=== PATIENT | male | born 1945 | race African-American/Black ===

== ENCOUNTER 2020-02-10 09:01 | Emergency (ER) | payer OTHER ==
[~2020-02-10] VITALS: Ht 180.3 cm; Wt 99.8 kg
[2020-02-10 09:16] VITALS: TEMP 98.7
[2020-02-10 12:43] LABS: PLATELET COUNT 214 K/uL (142-355)
[2020-02-10 14:14] LABS: PARTIAL THROMBOPLASTIN TIME 21.6 SECONDS (24.5-33.6)
[2020-02-10 19:00] VITALS: BP 195/97
== END 2020-02-10 19:49 | disposition short-term general hospital (02) ==
LOC: ED 09:01
PROVIDERS: Hospitalist
PROC: 0PS5XZZ Reposition Right Scapula, External Approach (ICD-10-PCS; principal; 2020-02-10)
DX: S42.291A Other displaced fracture of upper end of right humerus, initial encounter for closed fracture (principal); W18.39XA Other fall on same level, initial encounter; Y92.89 Other specified places as the place of occurrence of the external cause
CPT/HCPCS: 36415; 80053; 85027; 85610; 85730; 96360; 96361; 96375; 96376; 99284; J1170; J1885; J2250; J2405; J2704